=== PATIENT | male | born 1945 | race Asian ===

== ENCOUNTER 2017-01-30 01:25 | Inpatient (IN) | payer MEDICARE, MEDICAID ==
[~2017-01-30] VITALS: Ht 167.6 cm; Wt 91.8 kg
[2017-01-30] MEDS ORDERED: ASPIRIN 325 MG TABLET ONE (01:37)
[2017-01-30] MEDS ORDERED: FENTANYL PF 100 MCG/2ML ONE ×2 (01:37→01:41)
[2017-01-30] MEDS ORDERED: SODIUM CHLORIDE 0.9% 1,000 ML IV SCH (01:40)
[2017-01-30] MEDS ORDERED: ASPIRIN 325 MG TABLET PO STA (01:40)
[2017-01-30] MEDS ORDERED: VERAPAMIL 2.5 MG/ML, 2ML ONE (01:41)
[2017-01-30] MEDS ORDERED: MIDAZOLAM 1 MG/ML, 5ML ONE (01:41)
[2017-01-30] MEDS ORDERED: BIVALIRUDIN 250 MG ONE (01:42)
[2017-01-30] MEDS ORDERED: HEPARIN 1,000 UNITS/ML, 10ML ONE (01:42)
[2017-01-30] MEDS ORDERED: TICAGRELOR 90 MG TABLET ONE (01:42)
[2017-01-30] MEDS ORDERED: LIDOCAINE 2%, 20ML ONE (01:42)
[2017-01-30 01:58] LABS: HEMOGLOBIN 14.8 g/dL (13.7-18.0)
[2017-01-30] MEDS ORDERED: FENTANYL PF 100 MCG/2ML IVPush PRN (02:00)
[2017-01-30] MEDS ORDERED: SODIUM CHLORIDE 0.9%, 500ML IVBOLUS ONE (02:00)
[2017-01-30] MEDS ORDERED: ATORVASTATIN 80 MG TABLET PO ONE (02:00)
[2017-01-30] MEDS ORDERED: PLEASE ENTER ALLERGIES MC SCH ×2 (02:00)
[2017-01-30] MEDS ORDERED: ONDANSETRON 2MG/ML, 2ML ONE (02:09)
[2017-01-30] MEDS ORDERED: DOPAMINE/D5W PMX 250 ML ONE (02:30)
[2017-01-30] MEDS ORDERED: HEPARIN 25,000 UNITS/500ML PMX 500 ML ONE (02:38)
[2017-01-30] MEDS ORDERED: LIDOCAINE 1%-EPI 1:100K, 20ML ONE (03:54)
[2017-01-30] MEDS ORDERED: PHENYLEPHRINE 10 MG/ML ONE (04:18)
[2017-01-30] MEDS ORDERED: ZOLPIDEM 5MG TABLET PO PRN (04:30)
[2017-01-30] MEDS ORDERED: MORPHINE SULFATE 4 MG/ML, 1ML IVPush PRN (04:30)
[2017-01-30] MEDS ORDERED: ACETAMINOPHEN 325 MG TABLET PO PRN ×2 (04:30→05:30)
[2017-01-30] MEDS ORDERED: POLYETHYLENE GLYCOL 17 GM PACKET PO PRN (04:30)
[2017-01-30] MEDS ORDERED: NITROGLYCERIN 0.4 MG BOTTLE (25 TABS) SL PRN (04:30)
[2017-01-30] MEDS ORDERED: DOCUSATE 100 MG CAPSULE PO PRN (04:30)
[2017-01-30] MEDS ORDERED: HYDROcodone/APAP 5/325 TABLET PO PRN (04:30)
[2017-01-30] MEDS ORDERED: ONDANSETRON 2MG/ML, 2ML IVP PRN (04:30)
[2017-01-30] MEDS ORDERED: BISACODYL 10 MG SUPP PR PRN ×2 (04:30→05:30)
[2017-01-30] MEDS: SODIUM CHLORIDE 0.9% 1,000 ML IV SCH ×2 (05:12→12:42)
[2017-01-30] MEDS ORDERED: PHENYLEPHRINE 20 MG in SODIUM CHLORIDE 0.9% 248 ML IV PRN (05:30)
[2017-01-30] MEDS ORDERED: BISACODYL 5 MG EC TABLET PO PRN (05:30)
[2017-01-30] MEDS ORDERED: ONDANSETRON 2MG/ML, 2ML IV PRN (05:30)
[2017-01-30 05:39] LABS: PATH.CAST-FLAG NOT PRESENT; SPERM-FLAG NOT PRESENT; SRC-FLAG NOT PRESENT; XTAL-FLAG NOT PRESENT; YLC-FLAG NOT PRESENT
[2017-01-30] MEDS: ASPIRIN 81 MG TABLET EC PO SCH (05:44)
[2017-01-30 05:45] LABS: IS PT STATUS REG ER OR PRE ER? NO
[2017-01-30] MEDS ORDERED: ATORVASTATIN 80 MG TABLET PO SCH (09:00)
[2017-01-30] MEDS: SODIUM CHLORIDE FLUSH 10ML SYR IVF SCH ×2 (09:00→19:48)
[2017-01-30 11:43] LABS: IS PT STATUS REG ER OR PRE ER? NO
[2017-01-30] MEDS ORDERED: HEPARIN 5,000 UNITS/ML, 1ML SQ SCH (14:00)
[2017-01-30 15:20] VITALS: BP 144/76
[2017-01-30] MEDS ORDERED: LOSA1TAB18 PO (15:41)
[2017-01-30] MEDS ORDERED: ATOR10TA9 PO (15:41)
[2017-01-30] MEDS ORDERED: ALLO100T30 PO (15:41)
[2017-01-30] MEDS ORDERED: AMLO10TA4 PO (15:41)
[2017-01-30] MEDS: ATORVASTATIN 80 MG TABLET PO SCH (19:48)
[2017-01-30 20:00] VITALS: BP 151/89
[2017-01-31] VITALS (9 sets, daily range): BP systolic 110–151; BP diastolic 75–91
[2017-01-31] MEDS: ASPIRIN 81 MG TABLET EC PO SCH (03:33)
[2017-01-31 05:58] LABS: HEMOGLOBIN 13.2 g/dL (13.7-18.0)
[2017-01-31 06:00] LABS: BLOOD UREA NITROGEN 16 mg/dL (7-18)
[2017-01-31] MEDS: SODIUM CHLORIDE FLUSH 10ML SYR IVF SCH ×2 (08:10→20:17)
[2017-01-31] MEDS: TICAGRELOR 90 MG TABLET PO SCH ×2 (08:10→20:17)
[2017-01-31] MEDS ORDERED: HYDROCHLOROTHIAZIDE 12.5 MG CAPSULE PO ONE (09:30)
[2017-01-31] MEDS: LOSARTAN 50MG TABLET PO SCH (09:59)
[2017-01-31] MEDS: ALLOPURINOL 100 MG TABLET PO SCH (09:59)
[2017-01-31] MEDS ORDERED: CARVEDILOL 3.125 MG TABLET PO SCH (18:00)
[2017-01-31] MEDS ORDERED: AMIODARONE 900 MG in DEXTROSE 5% 482 ML IV PRN (18:30)
[2017-01-31] MEDS ORDERED: CARVEDILOL 3.125 MG TABLET PO ONE (18:30)
[2017-01-31] MEDS ORDERED: AMIODARONE 150 MG in DEXTROSE 5% 100 ML IV ONE (18:30)
[2017-01-31] MEDS ORDERED: FILTER 0.22 MICRON IV PRN (18:30)
[2017-01-31] MEDS: ATORVASTATIN 80 MG TABLET PO SCH (20:17)
[2017-02-01 00:55] VITALS: BP 119/69
[2017-02-01 04:00] VITALS: BP 119/69
[2017-02-01] MEDS ORDERED: CARVEDILOL 6.25 MG TABLET PO SCH (06:00)
[2017-02-01] MEDS: ASPIRIN 81 MG TABLET EC PO SCH (06:29)
[2017-02-01 06:41] VITALS: BP 127/79
[2017-02-01] MEDS: ALLOPURINOL 100 MG TABLET PO SCH (08:34)
[2017-02-01] MEDS: LOSARTAN 50MG TABLET PO SCH (08:36)
[2017-02-01] MEDS: TICAGRELOR 90 MG TABLET PO SCH (08:36)
[2017-02-01] MEDS: SODIUM CHLORIDE FLUSH 10ML SYR IVF SCH (08:44)
[2017-02-01 09:27] LABS: HEMOGLOBIN 14.2 g/dL (13.7-18.0)
[2017-02-01] MEDS ORDERED: AMIODARONE 200 MG TABLET PO SCH (09:30)
[2017-02-01 09:47] LABS: ASPARTATE AMINO TRANSFERASE 32 U/L (15-37); BLOOD UREA NITROGEN 19 mg/dL (7-18)
[2017-02-01 09:53] LABS: IS PT STATUS REG ER OR PRE ER? NO
[2017-02-01 13:26] VITALS: BP 147/82
[2017-02-01] MEDS ORDERED: ASPI-621 PO (13:54)
[2017-02-01] MEDS ORDERED: CARV6.2512 PO (13:54)
[2017-02-01] MEDS ORDERED: LOSA50TA2 PO (13:54)
[2017-02-01] MEDS ORDERED: AMIO200T42 PO (13:54)
[2017-02-01] MEDS ORDERED: NITR0.4T SL (13:54)
[2017-02-01] MEDS ORDERED: ATOR80TA75 PO (13:54)
[2017-02-01] MEDS ORDERED: TICA90TA PO (13:54)
== END 2017-02-01 15:22 | disposition home or self-care (01) | DRG 246 ==
LOC: EDBD 01:25 → ED 01:48 → EDIP 01:49 → ED 01:54 → CCU 04:08 → 5SO 17:31
PROC: 027135Z Dilation of Coronary Artery, Two Arteries with Two Drug-eluting Intraluminal Devices, Percutaneous Approach (ICD-10-PCS; principal; 2017-01-30)
PROC: 4A023N7 Measurement of Cardiac Sampling and Pressure, Left Heart, Percutaneous Approach (ICD-10-PCS; 2017-01-30)
PROC: B2111ZZ Fluoroscopy of Multiple Coronary Arteries using Low Osmolar Contrast (ICD-10-PCS; 2017-01-30)
PROC: B2151ZZ Fluoroscopy of Left Heart using Low Osmolar Contrast (ICD-10-PCS; 2017-01-30)
DX: I21.09 ST elevation (STEMI) myocardial infarction involving other coronary artery of anterior wall (principal); N17.0 Acute kidney failure with tubular necrosis; E16.2 Hypoglycemia, unspecified; I10 Essential (primary) hypertension; E78.5 Hyperlipidemia, unspecified; D72.829 Elevated white blood cell count, unspecified; I48.0 Paroxysmal atrial fibrillation; I25.10 Atherosclerotic heart disease of native coronary artery without angina pectoris; Z79.82 Long term (current) use of aspirin
CPT/HCPCS: 36415; 71010; 80047; 80048; 80053; 80061; 81001; 82040; 82436; 82570; 83036; 83735; 84133; 84300; 84443; 84484; 85014; 85018; 85025; 85610; 85730; 87081; 93005; 93306; 93458; 93567; 96360; C1760; C1769; C1894; C9601; J0583; J1265; J1644; J2250; J2405; J3010; J3490; C1725; C1874; C1887; J0282; J2370; J7030; J7040; J7060; Q9967